=== PATIENT | male | born 1970 | race Caucasian/White ===

== ENCOUNTER 2017-12-15 13:25 | Emergency (ER) | payer MEDICAID ==
[2017-12-15] MEDS: IBUPROFEN 600 MG TAB PO (15:13)
== END 2017-12-15 16:10 | disposition home or self-care (01) ==
LOC: FTE 13:25
DX: S89.92XA Unspecified injury of left lower leg, initial encounter (principal); W18.39XA Other fall on same level, initial encounter; Y92.9 Unspecified place or not applicable
CPT/HCPCS: 73562; 99284-25

== ENCOUNTER 2017-12-16 00:47 | Emergency (ER) | payer MEDICAID ==
[2017-12-16] MEDS: DIPHENHYDRAMINE 50 MG CAP PO (02:09)
[2017-12-16] MEDS: DEXAMETHASONE 10 MG/ML 1 ML INJ PO (02:10)
[2017-12-16] MEDS: CLINDAMYCIN 300 MG CAP PO (02:11)
== END 2017-12-16 04:10 | disposition home or self-care (01) ==
LOC: FTE 04:10
DX: L27.0 Generalized skin eruption due to drugs and medicaments taken internally (principal); S80.212A Abrasion, left knee, initial encounter; X58.XXXA Exposure to other specified factors, initial encounter; Y92.9 Unspecified place or not applicable
CPT/HCPCS: 99283; J1100